=== PATIENT | male | born 1975 | race Caucasian/White ===

== ENCOUNTER 2019-04-30 16:45 | Emergency (ER) | payer BC, SELFPAY ==
[2019-04-30 16:47] VITALS: BP 146/84; PULSE 85; RESP 16; TEMP 36.6; O2SAT 99; BMI 32.8
--- NOTE | 2019-04-30 16:48 | RAD_ITS ---
STUDY: X-RAY CHEST REASON FOR EXAM: Male, 43 years old. CHEST TIGHTNESS TECHNIQUE: AP COMPARISON: None. FINDINGS: EKG leads project over the chest. The lungs are clear and expanded. There is no demonstrated pleural abnormality. Normal size heart. Normal mediastinum and heidi. Normal visualized pulmonary arteries. There is atherosclerotic tortuosity of the aortic arch and descending thoracic aorta. No acute bony process. There is no demonstrated abnormality of the visualized soft tissue structures of the upper abdomen. RAD/Chest 1 View (Portable) IMPRESSION: Nonacute portable x-ray examination of the chest. Electronically Signed: Lit Silver MD (Brooks) at 18:06 EST , Service support ,
--- NOTE | 2019-04-30 16:48 | EKG12_ITS ---
Test Reason : CP Blood Pressure : / mmHG Vent. Rate : 060 BPM Atrial Rate : 060 BPM P-R Int : 138 ms QRS Dur : 110 ms QT Int : 398 ms P-R-T Axes : 103 037 102 degrees QTc Int : 398 ms Normal sinus rhythm Nonspecific T wave abnormality Abnormal ECG Confirmed by PARVIZ HERRERA, BRANDON ([id number]), commercial production editor ORQUIDEA BUI ([id number]) on 05/02/2019 9:44:05 AM Referred By: DC Confirmed By:BRANDON JJ MD
[2019-04-30 17:47] VITALS: O2SAT 96
[2019-04-30 17:52] VITALS: BP 146/83; PULSE 62; RESP 13; O2SAT 98
[2019-04-30 17:54] LABS: Absolute Lymphocyte Count 2.27 X10^3/uL (0.83-4.51); Absolute Neutrophil Count 5.3 X10^3/uL (2.0-7.7); Basophil# 0.05 X10^3/uL; Basophil% 0.6 % (0-1); Eosinophils% 3.5 % (0-5); Hematocrit 47.7 % (40-54); Hemoglobin 16.4 g/dL (13.0-16.5); Lymphocyte # 2.27 X10^3/ul (4.0); Lymphocyte % 26.5 % (19-41); Mean Corp Hgb Conc 34.4 g/dL (32-36); Mean Corpuscular Hgb 29.8 pg (27.0-32.0); Mean Corpuscular Volume 86.7 fL (80-94); Mean Platelet Vol. 10.5 fl (6.2-12.0); Monocyte# 0.64 X10^3/uL; Monocyte% 7.5 % (0-10); NRBC Flagged by Analyzer 0 % (0-5); Neutrophil # 5.27 X10^3/uL (2.7-7.7); Neutrophil % 61.5 % (47-70); Platelet Count 195 K/mm3 (150-450); RBC Distribution Width CV 12.4 % (11.6-14.6); RBC Distribution Width SD 39.3 fl (35.1-43.9); White Blood Count 8.6 K/mm3 (4.4-11.0)
[2019-04-30 18:10] VITALS: BP 128/82; PULSE 55; RESP 19; O2SAT 93
[2019-04-30 18:14] LABS: Anion Gap 3 (5-15); BUN 20 mg/dL (7-18); Calcium,Total 9.4 mg/dL (8.5-10.1); Chloride 109 mmol/L (98-107); EST Glomerular Filtration Rate 86 mL/min (>60); Est Glom Filt Rate - Afr Amer 104 mL/min (>60); Estimated Creatinine Clearance 99.35 ml/min; Glucose 99 mg/dL (74-106); Potassium 4.3 mmol/L (3.5-5.1); Sodium Level 144 mmol/L (136-145)
[2019-04-30] MEDS: Mag Hydrox/Al Hydrox/Simeth 30 ML UDC PO (18:45)
[2019-04-30 19:09] VITALS: BP 141/87; PULSE 53; RESP 22; O2SAT 93
--- NOTE | 2019-04-30 20:00 | ED.DCSUM_ITS ---
- ER Visit Summary Date of Service: 04/30/19 Chief Complaint: Chest pain History of Present Illness: The patient is a 43 M who presents with chest pain that is been waxing and waning over the past 3 days. Patient states the pain became worse today. Patient states he did eat some [place] food last night and again today. Patient states this got worse few hours after eating that. Patient states nothing makes it better or worse. Patient admits to some slight shortness of breath. Patient also admits to some acid reflux symptoms. Patient denies any cardiac or PE risk factors. Physical Examination: Vital signs are stable. Patient is afebrile. Patient is in no acute distress. Oral mucosa is pink and moist. Neck is supple. Trachea is midline. There is no JVD noted. Heart was regular rate and rhythm. Lungs are clear and equal bilaterally. Abdomen is soft. Bowel sounds are normal. There is no tenderness. There is no rebound or guarding noted. Skin is warm dry. Cranial nerves II through XII are intact. There are no focal motor or sensory deficits noted. Extremities are intact. There is no calf tenderness or edema. Test Results: EKG showed normal sinus rhythm with a rate of 60. There are no acute ST or T wave changes. There are no prior EKGs available for comparison. CBC, basic metabolic profile, troponin were obtained were all within normal limits. Portable chest x-ray was obtained. There is no acute cardiopulmonary process. This was interpreted by the radiologist and myself. Emergency Department Course and Treatment: Patient was given a GI cocktail here. Patient had improvement of his symptoms with this. Patient was instructed to follow-up with his primary care physician in 5 to 7 days. Patient was given a prescription for Prilosec. Patient understood and was agreeable with the plan. All questions were answered. Disposition: Discharge home Impression: Chest pain This note was generated with [employer] dictation software. It may contain incorrect words, spelling, and punctuation that were not noted in review of the chart prior to signing ED Disposition - Plan for ED Patient: Disposition: Home or Assisted Living Diagnosis: Chest pain Instructions: CHEST PAIN, Uncertain Cause Prescriptions: Omeprazole [Prilosec] 20 mg PO DAILY #30 cap Prescription Printed Referrals: Finn Foster MD [Primary Care Provider] - 3-5 Days
[2019-04-30 20:19] VITALS: BP 141/88; PULSE 54; RESP 14; O2SAT 99
== END 2019-04-30 20:19 | disposition home or self-care (01) ==
PROVIDERS: Emergency Provider Emergency Medicine; Family Provider Internal Medicine; PCP Internal Medicine
DX: R07.9 Chest pain, unspecified (principal); R06.02 Shortness of breath; M54.2 Cervicalgia; K21.9 Gastro-esophageal reflux disease without esophagitis
CPT/HCPCS: 71045; 80048; 84484; 85025; 93005; 99284